=== PATIENT | male | born 1945 | race Caucasian/White ===

== ENCOUNTER 2017-03-10 16:51 | Outpatient (CLI) | payer MEDICARE, BC ==
[~2017-03-10] VITALS: Ht 177.8 cm; Wt 76.7 kg
--- NOTE | ~2017-03-10 | EC ---
PATIENT:ISIDRO LIGHT DATE OF SERVICE: 03/10/17 SEX: M MEDICAL RECORD: [id number] DATE OF : 45 LOCATION:D.OPS AGE OF PATIENT: 71 ADMISSION DATE: 03/10/17 REFERRING PHYSICIAN: INTERPRETING PHYSICIAN: BRENT CASEY MD ECHOCARDIOGRAM REPORT ECHO CHARGES 4 ECHO COMPLETE CLINICAL DIAGNOSIS: UNSTABLE ANGINA ECHOCARDIOGRAPHIC MEASUREMENTS (adult normal given) AC root (d.<3.7cm) 3.4 cm LV Septum d (<1.2 cm> 1.4 cm Valve Excursion 1.2 cm LV Septum (systole) 2.2 cm Left Atria (s.<4.0cm> 3.4 cm LVPW d(<1.2cm) 1.2 cm RV (d.<2.3cm) cm LVPW (sytole) 1.9 cm LV diastole(<5.6CM) 5.3 cm MV E-F(>70mm/sec) cm LV systole 2.9 cm LVOT Diameter cm MV exc.(>10mm) cm Est.ejection fraction (50-75%) % Pericardial Effusion N DOPPLER: LVIT cm/sec A 110 cm/sec E 58.0 cm/sec LA cm/sec RVSP 18.0 mmHg LVOT 104 cm/sec AOP1/2T m/s Asc. Ao 123 cm/sec RVOT 57.0 cm/sec RA cm/sec PA 81.0 cm/sec AV Gradient Peak 6.1 mmHg AV Mean 3.1 mmHg AV Area cm MV Gradient Peak 4.9 mmHg MV Mean 2.0 mmHg MV Area cm COMMENTS: Vp Of Digital Marketing: Alem VALLADARESDSOE Turpentine Farmer: Ana Casey TAPE# PACS DATE OF SERVICE: 03/11/2017 PROCEDURE: Transthoracic echocardiogram. FINDINGS: 1. Left ventricle has evidence of mild concentric left ventricular hypertrophy with diastolic dysfunction, ejection fraction 55% to 60%. 2. The left atrium is normal size, normal function. 3. The aortic valve, although sclerotic has no evidence of stenosis. 4. The mitral valve overall is normal with no significant mitral regurgitation. ECHOCARDIOGRAM REPORT [id number] ISIDRO LIGHT 5. The tricuspid valve overall is normal. Trace tricuspid regurgitation. RVSP that appears to be normal. 6. Pulmonic valve was not well visualized, but normal by Doppler evaluation. 7. The right atrium normal size, normal function. 8. The right ventricle is normal. CONCLUSIONS: The patient has evidence of mild left ventricular hypertrophy and hypertensive heart disease, but otherwise normal echocardiogram. TRANSINT:[id number] Voice Confirmation ID: [id number] DOCUMENT ID: [id number] BRENT CASEY MD at 1353 CC: [id number] DICTATION DATE: 03/12/17 1026 COPYWRITER: 03/12/17 1127 DEP CLI 03/11/17 [id number] [place] [address]
--- NOTE | ~2017-03-10 | HEMODYNAMI ---
PATIENT:ISIDRO LIGHT MEDICAL RECORD: [id number] : 45 [facility] [id number] ADMISSION DATE: 03/10/17 Generatedon:03/11/20179:21 Patient name: ISIDRO LIGHT Patient #: [id number] SSN: D OB: 1945 Date of study: 03/11/2017 Page: Of Hemodynamic Procedure Report Patient Data Patient Demographics Procedure consent was obtained First Name: ISIDRO Gender: Male Last Name: NADEGE : 1945 Middle Initial: C Age: 71 year(s) Patient #: [id number] Race: Additional ID: [id number] Contact details Address: [address] [place] [address] State: [place] City: [place] Zip code: [address] Past Medical History Allergies Allergen Reaction Date Comments Reported Iodine Other 03/02/2014 Hives; Facial, Tongue and Throat swelling Admission Admission Data Admission Date: 03/10/2017 Admission Time: 18:37 Room #: D.2122 Height (in.): 70 BSA: 1.94 (m2) Height (cm.): 177.8 BMI: 24.25 (kg/m2) Weight (lbs.): 169 Weight (kg.): 76.66 Lab Results Lab Result Date: 03/11/2017 Lab Result Time: 0:00 Biochemistry Name Units Result Min Max BUN mg/dl 8 --(*---)-- 7 18 Creatinine mg/dl 0.8 --(-*--)-- 0.6 1.3 CBC Name Units Result Min Max Hemoglobin g/dl 13.7 --(*---)-- 13.5 17.5 Procedure Procedure Types Cath Procedure Diagnostic Procedure [facility] w/Coronaries PCI Procedure Coronary Stent Coronary Stent Initial Miscellaneous Procedures Moderate Sedation up to 30 minutes Procedure Description Procedure Date Procedure Date: 03/11/2017 Procedure Start Time: 8:45 Procedure End Time: 9:20 Procedure Staff Name Function Wood Calderón MD Performing Physician Amina Hickey RT Monitor Mckenzie Vergara RT Scrub Sean Drake RN Nurse Gaston Bettencourt RT Denitrator Procedure Data Cath Procedure Fluoroscopy Diagnostic fluoroscopy Total fluoroscopy Time: 4.2 time: 4.2 min min Diagnostic fluoroscopy Total fluoroscopy dose: 857 dose: 857 mGy mGy Contrast Material Contrast Material Type Amount (ml) Isovue 300 64 Entry Location Entry Primary Successful Side Size Upsize Upsize Entry Closure Succes sful Closure Location (Fr) 1 (Fr) 2 (Fr) Remarks Device Remarks Femoral Right 5 Fr 6 Fr Exoseal artery Short Estimated blood loss: 10 ml Diagnostic catheters Device Type Used For End Catheter Placement MULTIPACK JL 4.0 5Fr Procedure catheter MULTIPACK 3DRC 5Fr Procedure catheter MULTIPACK Pigtail 5 Fr Procedure catheter Procedure Complications No complications Procedure Medications Medication Administration Route Dosage 0.9% NaCl I.V. 100 ml/hr Oxygen NC 2 l/min Lidocaine 2% added to field 20 Heparin Flush Bag added to field 2 bags (1000units/500ml NS) Radial Cocktail added to field 1 syringe (Verapomil 2mg/Nitro 400mcg/Heparin 1500units) Effient P.O. 60 mg Versed I.V. 2 mg Fentanyl I.V. 25 mcg Heparin Bolus I.V. 5000 units Hemodynamics Rest BSA: 1.94 (m2) HGB: 13.7 (g/dl) O2 Consumption: Estimated: 219.46 (ml/min) O2 Co nsumption indexed: Estimated:113.12 (ml/min/m) Heart Rate: 63 (bpm) Pressure Samples Time Site Value (mmHg) Purpose Heart Use Rate(bpm) 8:54 AO 141/78(105) Snapshot 66 9:01 LV 149/-10,8 Snapshot 68 9:01 LV 148/-11,8 EDP 67 9:02 AO 148/81(109) Pullback 69 9:02 LV 123/6,9 Pullback 69 Gradients Valve Time Site 1 Site 2 Mean SEP/DFP Peak To Heart Use (mmHg) (sec/min) Peak Rate (mmHg) (bpm) Aortic 9:02 LV AO 0 69 123/6,9 148/81(109) Calculations Valve P-P Mean Valve Index Valve Source Name Gradient Area Flow (cm2) Aortic 0 0 Snapshots Pre Cath Intra NCS Post Cath Vital Signs Time Heart Resp SPO2 etCO2 NIBP (mmHg) Rhythm Pain Sedation Rate (ipm) (%) (mmHg) Status Level (bpm) 8:37:06 69 18 98 0 165/95(120) NSR 0 (11) 10(A) , No pain 8:42:28 70 20 98 18.1 151/85(126) NSR 0 (11) 10(A) , No pain 8:47:08 66 19 97 10.5 131/85(108) NSR 0 (11) 9(A) , No pain 8:51:47 66 20 98 18.1 133/83(104) NSR 0 (11) 9(A) , No pain 8:56:27 64 20 98 18.8 137/79(108) NSR 0 (11) 9(A) , No pain 9:01:08 65 14 96 20.3 142/77(125) NSR 0 (11) 9(A) , No pain 9:05:44 73 15 97 24.1 127/67(102) NSR 0 (11) 10(A) , No pain 9:10:23 69 18 97 24.9 133/80(108) NSR 0 (11) 10(A) , No pain 9:15:01 72 16 97 17.3 139/77(107) NSR 0 (11) 10(A) , No pain 9:19:42 69 6 98 24.9 142/82(108) NSR 0 (11) 10(A) , No pain Medications Time Medication Route Dose Verified Delivered Reason Note s Effectiveness by by 8:39:16 0.9% NaCl I.V. 100ml/hr Wood Buffie used for Carmela ulrich MD 8:39:27 Oxygen NC 2 l/min Wood Buffie Per physician Carmela Drake RN, MD 8:39:35 Lidocaine 2% added 20ml Wood Wood for local to vial Carmela Calderón MD anesthetic field HAWKINS 8:39:41 Heparin Flush added 2 bags Wood Wood used for Bag to Carmela Calderón MD procedure (1000units/500ml field HAWKINS NS) 8:39:54 Radial Cocktail added 1 Wood Wood for wast ed, (Verapomil to syringe Carmela Calderón MD vasodilation femoral 2mg/Nitro field HAWKINS access 400mcg/Heparin obtained 1500units) 8:40:07 Effient P.O. 60 mg Wood Buffie for Carmela Drake RN antiplatelet therapy 8:41:44 Versed I.V. 2 mg Wood Buffie for sedation Carmela Drake RN, MD 8:41:54 Fentanyl I.V. 25 mcg Wood Buffie for sedation Carmela Drake RN, MD 9:02:15 Heparin Bolus I.V. 5000 Wood Buffie for veri fied units Carmela Drake RN anticoagulation by MD martinez Procedure Log Time Note 8:14:38 Gaston Bettencourt RT(R) sent for patient. Start room use. 8:14:39 Time tracking: Regular hours 8:14:43 Plan of Care:Hemodynamics will remain stable., Cardiac rhythm will remain stable., Comfort level will be maintained., Respiratory function will remain adequate., Patient/ family verbilizes understanding of procedure., Procedure tolerated without complication., Recovers from procedure without complications.. 8:16:42 Lab Result : BUN 8 mg/dl 8:16:42 Lab Result : Hemoglobin 13.7 g/dl 8:16:42 Lab Result : Creatinine 0.8 mg/dl 8:16:47 Lab results completed and on chart. 8:29:28 Patient received from Pre/Post Procedure Room to CCL 1 Alert and oriented. Tansferred to table in Supine position. 8:29:29 Warm blankets applied, and iban hugger turned on for patient comfort. 8:29:30 Correct patient and procedure confirmed by team. 8:29:31 Signed procedure consent form obtained from patient. 8:29:33 ECG and BP/O2 sat monitors applied to patient. 8:36:09 Vital chart was started 8:36:10 Baseline sample Acquired. 8:36:25 Rhythm: sinus rhythm 8:36:28 Full Disclosure recording started 8:36:31 H&P Date Dictated: 03/11/2017 Within 30 days and on chart.. 8:36:31 Pre-procedure instructions explained to patient. 8:36:32 Pre-op teaching completed and patient verbalized understanding. 8:36:34 Family in patients room. 8:36:35 Patient NPO since Midnight. 8:36:38 Is the patient allergic to Iodine/contrast media? Yes. 8:36:39 Was the patient premedicated? Yes 8:36:41 Is patient on blood thinner?Yes 8:36:43 ACC The patient was administered the following blood thiners within the last 24 hours: ACCEffient 8:36:45 Patient diabetic? Yes. 8:36:46 If diabetic: On Metformin? Yes 8:36:50 If on Metformin: Last Dose? 03/10/2017 8:36:52 Previous problem with sedation/anesthesia? No ? 8:36:53 Snore? Yes 8:36:55 Sleep apnea? No 8:36:57 Deviated septum? No 8:36:58 Opens mouth fully? Yes 8:36:59 Sticks out tongue? Yes 8:37:03 Airway obstruction? No ? 8:37:06 Dentures? Yes OUT 8:37:10 Pre procedure: right dorsailis pedis pulse 1+ Palpable, but thready & weak; easily obliterated 8:37:12 Modified Gregorio's test Ulnar < 7 seconds 8:37:13 Patient pain scale 0/10 ?. 8:37:27 IV patent on arrival in left forearm with 0.9% NaCl at [facility]. 8:37:37 Right Radial & Right Groin area was prepped with chlora-prep and draped in sterile fashion 8:37:38 Alarms reviewed by R. N. 8:37:39 Sharps counted by scrub and verified by R.N. 8:37:46 Use device set Radial Dx or PCI 8:37:53 Tegaderm 4 x 4 (1626W) opened to sterile field. 8:37:54 ACIST Manifold (11089) opened to sterile field. 8:37:55 ACIST Hand Control (80594) opened to sterile field. 8:37:56 ACIST Syringe (46456) opened to sterile field. 8:37:57 Medline Cath Pack ([id number]) opened to sterile field. 8:37:57 Bag Decanter () opened to sterile field. 8:37:59 DIAGNOSTIC WIRE .035 260cm J wire (636378) opened to sterile field. 8:37:59 MBrace Wrist Support ([id number]) opened to sterile field. 8:38:09 --------ALL STOP TIME OUT------ 8:38:09 Final Timeout: patient, procedure, and site verified with staff and physician. All members of the team are in agreement. 8:38:12 Right Radial & Right Groin site verified by team. 8:38:15 Physical assessment completed. ASA score P 2 - A patient with mild systemic disease as per Wood Calderón MD. 8:38:19 Sedation plan: IV Moderate Sedation Medication:Versed, Fentanyl 8:39:16 0.9% NaCl 100ml/hr I.V. was administered by Sean Drake RN; used for procedure; 8:39:27 Oxygen 2 l/min NC was administered by Sean Drake RN; Per physician; 8:39:35 Lidocaine 2% 20ml vial added to field was administered by Wood Calderón MD; for local anesthetic; 8:39:41 Heparin Flush Bag (1000units/500ml NS) 2 bags added to field was administered by Wood Calderón MD; used for procedure; 8:39:54 Radial Cocktail (Verapomil 2mg/Nitro 400mcg/Heparin 1500units) 1 syringe added to field was administered by Wood Calderón MD; for vasodilation; wasted, femoral access obtained 8:40:07 Effient 60 mg P.O. was administered by Sean Drake RN; for antiplatelet therapy; 8:41:36 Patient Weight : 169 lbs 8:41:39 Patient Height : 70 inches 8:41:44 Versed 2 mg I.V. was administered by Sean Drake RN; for sedation; 8:41:54 Fentanyl 25 mcg I.V. was administered by Sean Drake RN; for sedation; 8:45:44 Zero performed for pressure channel P1 8:45:51 Procedure started. 8:45:55 Local anesthetic to right radial artery with Lidocaine 2% by Wood Calderón MD.INITIAL ACCESS ONLY 8:49:37 Unable to advance radial wire. Moving to Femoral approach. 8:49:44 Local anesthetic to right femoral artery with Lidocaine 2% by Wood Calderón MD.ADDITIONAL ACCESS 8:50:29 Use device set Multipack Set 8:50:34 DIAGNOSTIC Multipack 5Fr catheter set (BN1068) opened to sterile field. 8:50:51 MICROPUNCTURE 4FR Cook (T18933) opened to sterile field. 8:50:51 SHEATH 5FR [place] (CQQ220) opened to sterile field. 8:51:59 Access obtained with 4Fr micropunture. 8:52:08 A 5 Fr sheath was inserted into the Right Femoral artery 8:53:06 A MULTIPACK JL 4.0 5Fr catheter was advanced over the wire and used for Procedure. 8:54:34 LCA angiography performed. 8:56:09 Catheter exchanged over wire. 8:56:14 A MULTIPACK 3DRC 5Fr catheter was advanced over the wire and used for Procedure. 8:57:46 RCA angiography performed. 9:01:47 Catheter exchanged over wire. 9:01:51 A MULTIPACK Pigtail 5 Fr catheter was advanced over the wire and used for Procedure. 9:02:15 Heparin Bolus 5000 units I.V. was administered by Sean Drake RN; for anticoagulation; verified by 9:02:21 LV angiography performed. 9:02:37 LV gram done using GENAO 9:02:50 EF : 65 % 9:02:52 LV hemodynamics recorded. 9:02:55 Injector settings: Ml/sec: 12, Volume: 8, 9:02:57 Catheter exchanged over wire. 9:03:04 Use device set CARMELA PCI 9:03:13 INFLATOR Merit BasixCompak (VD5417) opened to sterile field. 9:03:14 COPILOT Valve Control (5590753) opened to sterile field. 9:03:16 SHEATH 6FR [place] (VTJ308) opened to sterile field. 9:03:21 BMW 190cm [place] 2 J wire ([id number]) opened to sterile field. 9:04:43 Sheath upsized to a 6 Fr Short. 9:05:14 GUIDE 6FR ART 4.0 catheter ([id number]) opened to sterile field. 9:05:40 6 Fr ART 4 guide catheter was inserted over the wire 9:05:57 Study PCI Site: [place] pRCA has 70% stenosis. 9:06:03 ACC Pre-intervention LILY Flow is 3. 9:07:40 BMW wire advanced. 9:08:14 Wire advanced across lesion. 9:11:17 Inflation Number: 1 A JEWELL RX 3.5 x 22 stent ([id number]) was prepped and advanced across the Prox RCA. The stent was deployed at 14 SAAD for 0:10 (min:sec). 9:11:49 Stent catheter was removed intact over wire. 9:13:21 ACC Post-intervention LILY Flow is 3. 9:13:30 Wire removed. 9:13:31 Guide catheter removed. 9:13:40 EXOSEAL 6Fr (EX600) opened to sterile field. 9:14:03 Sheath removed intact; hemostasis achieved with Exoseal to the Right Femoral artery. 9:14:13 Procedure ended.(Physican Out) 9:15:38 Fluoroscopy time 04.20 minutes. 9:15:42 Fluoroscopy dose: 857 mGy 9:15:42 Flurop Dose total: 857 9:15:46 Contrast amount:Isovue 300 64ml. 9:15:48 Sharps counted by scrub and verified by R.N. 9:15:50 Insertion/operative site no bleeding no hematoma. 9:15:53 Post-op/insertion site Right Femoral artery dressed using a 4 x 4 and Tegaderm. 9:15:58 Post-op/insertion site Right Radial artery dressed using a Bandaid. 9:16:00 Post Procedure Pulses reassessed and unchanged 9:16:03 Post-procedure physical assessment completed. ASA score P 2 - A patient with mild systemic disease as per Wood Calderón MD. 9:16:05 Post procedure rhythm: unchanged. 9:16:10 Estimated blood loss: 10 ml 9:16:12 Post procedure instruction explained to patient.Patient verbalizes understanding. 9:16:12 Patient needs reinforcement of post procedure teaching. 9:16:22 Procedure type changed to Cath procedure, Diagnostic procedure, LHC, LHC w/Coronaries, PCI procedure, Coronary Stent, Coronary Stent Initial, Miscellaneous Procedures, Moderate Sedation up to 30 minutes 9:16:51 Procedure Complication : No complications 9:16:54 Procedure and supply charges have been captured, reviewed, submitted and are correct. 9:20:17 Vital chart was stopped 9:20:18 See physician's report for complete and final results. 9:20:21 Report given to PCU. 9:20:24 Patient transfered to PCU with Bed. 9:20:27 Procedure ended. 9:20:27 Full Disclosure recording stopped 9:20:44 End room use (Document Last) Intervention Summary Intervention Notes Time ActionType Lesion and Equipment Used Action# Pressure Duration Attributes 9:11:[address] stent Prox RCA JEWELL RX 3.5 x 1 14 00:10 22 stent ([id number]) Device Usage Item Name Manufacture Quantity Catalog Number Hospital Part Current M inimal Lot# / Charge Number Stock Stock Serial# Code Tegaderm 4 x 4 3M 1 1626W [id number] [id number] [id number] 5 (1626W) ACIST Manifold Acist 1 83217 079074 636334 951393 5 (80074) Medical Systems Inc ACIST Hand Acist 1 70298 350623 806001 174501 5 Control Medical (27027) Systems Inc ACIST Syringe Acist 1 26779 313316 051356 308671 2 0 (91826) Medical Systems Inc Medline Cath Cardinal 1 [id number] 771335 91552 681480 5 Pack [employer] ([id number]) Bag Decanter Microtek 1 2001S 380464 23199 442371 5 (2001S) Medical Inc. DIAGNOSTIC St Mitch 1 929372 917396 564515 984418 3 0 WIRE .035 260cm J wire (889002) MBrace Wrist Advanced 1 140-0250-00 607524 52643 495195 5 Support Vascular (778177821) Dynamics DIAGNOSTIC Cardinal 1 LF6766 371998 44505 007909 3 0 Multipack 5Fr Health catheter set (BT9688) MICROPUNCTURE Cook Medical 1 B14749 711328 435143 806845 5 4FR Cook (A18181) SHEATH 5FR Terumo 1 NEI941 142363 965051 443191 4 0 [place] (FSK443) MULTIPACK JL Cardinal 1 787202 5 4.0 5Fr Health catheter MULTIPACK 3DRC Cardinal 1 501016 5 5Fr catheter Health MULTIPACK Cardinal 1 434973 5 Pigtail 5 Fr Health catheter INFLATOR Merit Merit 1 FA5143 381151 441647 920059 1 5 Goodfilms (YY2894) COPILOT Valve Davison 1 4882854 391585 362082 101867 5 Control Vascular (5931355) SHEATH 6FR Terumo 1 LZA576 791492 487863 042865 4 0 [place] (IFZ885) BMW 190cm Davison 1 [id number] 195134 17574 937763 5 [place] 2 J Vascular wire (8731489E) GUIDE 6FR ART [place] 1 [id number] 962170 264713 399197 0 4.0 catheter Scientific (863324724) JEWELL RX 3.5 x Medtronic 1 [id number] 102558 8522535 428193 5 [id number] 22 stent ([id number]) EXOSEAL 6Fr Cardinal 1 EX600 561477 342613 050387 1 0 (EX600) Health Signature Audit [place] Stage Time Signature Unsigned Intra-Procedure 03/11/2017 Gaston Bettencourt 9:20:56 AM RT(R) Signatures Monitor : Amina Hickey Signature : RT Date : Time : [address] [address]
[~2017-03-10 16:51] MED LIST: BAYER CHEWABLE81 MG PO; DEXILANT60 MG PO; EFFIENT10 MG PO; EPIPEN0.3 MG/0.3 IM; FLUTICASONE PRO16 GM NS; FOLATE0.4 MG PO; GLUCOPHAGE1000 MG PO; GLUCOTROL XL 1010 MG PO; MIRALAX17 GM PO; NASONEX NASAL S17 GM NS; OMEGA-3100 MG PO; PLAVIX75 MG PO; PREVALITE POWD231 GM PO; PRINIVIL20 MG PO; PROTONIX40 MG PO; ZOCOR40 MG PO; ZYRTEC10 M1 PO; ZYRTEC10 MG PO
[2017-03-10 17:45] LABS: BASOPHILS 0.2 % (0-2); HEMATOCRIT 38.5 % (42.0-54.0); HEMOGLOBIN 13.3 g/dL (13.5-17.5); IMMATURE GRANULOCYTES 0.2 % (0-5); LYMPHOCYTES 40.2 % (15-50); MCHC 34.5 g/dL (31.0-37.0); MCV 92.5 fL (80.0-100.0); MEAN PLATELET VOLUME 9.7 fL (7.4-10.4); MONOCYTES 7.5 % (2-11); NEUTROPHILS 49.9 % (40-80); PLATELET COUNT 167 10x3/uL (130-400); RBC 4.16 10x6/uL (4.20-6.10); RDW 12.5 % (11.5-14.5); WBC 4.4 10x3/uL (4.8-10.8)
[2017-03-10 17:59] LABS: ALBUMIN 3.8 g/dL (3.4-5.0); ALKALINE PHOSPHATASE 94 U/L (46-116); ALT (SGPT) 28 U/L (10-68); BILIRUBIN - TOTAL 0.28 mg/dL (0.2-1.3); CALC OSMOLALITY 280 mosm/kg (275-300); CALCIUM 8.8 mg/dL (8.5-10.1); CHLORIDE - SERUM 104 mmol/L (98-107); CREATININE - SERUM 0.9 mg/dL (0.6-1.3); POTASSIUM - SERUM 3.8 mmol/L (3.5-5.1); PROTEIN - SERUM 6.7 g/dL (6.4-8.2); SODIUM 141 mmol/L (136-145); UREA NITROGEN 6 mg/dL (7-18); eGFR NON AFRICAN AMERICAN 88 mL/min (90-120)
[2017-03-10 18:00] LABS: GLUCOSE 142 mg/dL (74-106)
[2017-03-10 18:09] LABS: CHOL - HDL RATIO 2.7 ratio (2.3-4.9); CHOLESTEROL, TOTAL 121 mg/dL (0-200); CKMB 0.9 U/L (0.0-3.6); CREATINE KINASE 83 UL (21-232); HDL CHOLESTEROL 45 mg/dL (32-96); LDL CHOLESTEROL 12 mg/dL (0-100); LDL-HDL RATIO 0.3 ratio (1.5-3.5); TRIGLYCERIDE 322 mg/dL (30-200); TROPONIN-I < 0.017 ng/mL (0.000-0.060)
[2017-03-10] MEDS ORDERED: IBUPROFEN400 MG PO (21:13)
[2017-03-10 23:09] LABS: BASOPHILS 0.2 % (0-2); EOSINOPHILS 2.8 % (0-7); HEMATOCRIT 39.9 % (42.0-54.0); HEMOGLOBIN 13.7 g/dL (13.5-17.5); IMMATURE GRANULOCYTES 0.2 % (0-5); LYMPHOCYTES 42.3 % (15-50); MCH 31.8 pg (26.0-34.0); MCHC 34.3 g/dL (31.0-37.0); MCV 92.6 fL (80.0-100.0); MEAN PLATELET VOLUME 9.4 fL (7.4-10.4); MONOCYTES 7.1 % (2-11); NEUTROPHILS 47.4 % (40-80); PLATELET COUNT 157 10x3/uL (130-400); RBC 4.31 10x6/uL (4.20-6.10); RDW 12.4 % (11.5-14.5); WBC 4.9 10x3/uL (4.8-10.8)
[2017-03-10 23:29] LABS: CALCIUM 9.1 mg/dL (8.5-10.1); CARBON DIOXIDE 31.7 mmol/L (21.0-32.0); CHLORIDE - SERUM 103 mmol/L (98-107); CKMB 0.9 U/L (0.0-3.6); CREATINE KINASE 87 UL (21-232); CREATININE - SERUM 0.8 mg/dL (0.6-1.3); GLUCOSE 138 mg/dL (74-106); SODIUM 142 mmol/L (136-145); eGFR NON AFRICAN AMERICAN > 90 mL/min (90-120)
[2017-03-10 23:30] LABS: CALC OSMOLALITY 282 mosm/kg (275-300); TROPONIN-I < 0.017 ng/mL (0.000-0.060); UREA NITROGEN 8 mg/dL (7-18)
[2017-03-11 00:30] VITALS: BP 156/77
[2017-03-11 00:47] VITALS: BP 156/77; BMI 24.2
[2017-03-11 07:48] LABS: CKMB 1.2 U/L (0.0-3.6); CREATINE KINASE 88 UL (21-232)
[2017-03-11 07:49] LABS: TROPONIN-I < 0.017 ng/mL (0.000-0.060)
[2017-03-11 08:07] VITALS: BP 138/62
[2017-03-11 11:22] VITALS: BP 134/82
[2017-03-11 11:42] VITALS: Ht 177.8 cm; Wt 76.7 kg
[2017-03-11 12:20] LABS: CKMB 0.8 U/L (0.0-3.6); CREATINE KINASE 62 UL (21-232)
[2017-03-11 12:27] LABS: TROPONIN-I < 0.017 ng/mL (0.000-0.060)
[2017-03-11] MEDS ORDERED: PLAVIX75 MG PO (14:12)
[2017-03-11] MEDS ORDERED: EFFIENT10 MG PO (14:38)
[2017-03-11 15:25] VITALS: BP 122/86
== END 2017-03-11 16:52 | disposition home or self-care (01) ==
LOC: OBSVTIME → D.ER 16:51 → D.OPS 16:51 → D.M2 18:37 → D.ER 18:37 → OBSVTIME 18:37 → D.M2 20:57 → D.OPS 03-11 16:52 → D.M2 03-11 16:52
PROVIDERS: Emergency Medicine; Internal Medicine Cardiovascular Disease
DX: I25.110 Atherosclerotic heart disease of native coronary artery with unstable angina pectoris (principal); E11.9 Type 2 diabetes mellitus without complications; R07.9 Chest pain, unspecified; Z01.812 Encounter for preprocedural laboratory examination
CPT/HCPCS: 93458; C9600

== ENCOUNTER → 2018-09-26 11:15 | Outpatient (CLI) | payer MEDICARE, BC ==
[2017-03-11 11:42] VITALS: BMI 24.2
[~2018-09-26 11:15] MED LIST changes: +IBUPROFEN400 MG PO
--- NOTE | 2018-09-28 16:51 | ST ---
PATIENT:ISIDRO LIGHT MEDICAL RECORD: [id number] SEX: M LOCATION:[facility] ORDER #: ADMISSION DATE: 09/26/18 AGE OF PATIENT: 72 REFERRING PHYSICIAN: INTERPRETING PHYSICIAN: CLAYTON PHILIPPE MD DATE OF SERVICE: 09/26/2018 PROCEDURE: Nuclear Stress Test. INDICATION: Angina and coronary artery disease, shortness of breath, hypertension, and hyperlipidemia. PROCEDURE IN DETAIL: He was exercised on standard Lexiscan protocol with 28 mCi of sestamibi injected at peak stress, 9 mCi used previously for rest images. FINDINGS: Gated SPECT reveals preserved ejection fraction at 68% with decreased thickening and brightening throughout the inferior segments. SPECT imaging: Cardiolite was used as myocardial perfusion agent. There is a fixed perfusion defect inferiorly from a previous inferior myocardial infarction. There is no evidence of reversible ischemia. The remaining segments with homogeneous uptake at rest and stress. OVERALL IMPRESSION: This is a stable and mildly abnormal nuclear stress test only showing a fixed perfusion defect inferiorly. No ongoing ischemic burden and preserved ejection fraction at 68%. Continue medical management of the coronary artery disease and cardiac risk factors. TRANSINT:[id number] Voice Confirmation ID: [id number] DOCUMENT ID: [id number] CLAYTON PHILIPPE MD at 1651 CC: MENDOZA HORTA [id number] DICTATION DATE: 09/26/18 1647 ROLL TRUCKER: 09/27/18 0055 [facility] CLI 09/26/18 [id number] [place] [address]
== END | disposition home or self-care (01) ==
LOC: D.HCCARDIO 11:15
PROVIDERS: ATTEND Internal Medicine Interventional Cardiology
DX: I25.10 Atherosclerotic heart disease of native coronary artery without angina pectoris (principal)

== ENCOUNTER 2019-09-29 19:41 | Emergency (ER) | payer MEDICARE, BC ==
[~2019-09-29] VITALS: Ht 177.8 cm; Wt 81.8 kg
[2019-09-29 19:55] VITALS: Ht 177.8 cm; Wt 81.8 kg
[2019-09-29 20:34] LABS: BASOPHILS 0.2 % (0-2); EOSINOPHILS 1.2 % (0-7); HEMATOCRIT 37.5 % (42.0-54.0); HEMOGLOBIN 12.6 g/dL (13.5-17.5); IMMATURE GRANULOCYTES 0.2 % (0-5); LYMPHOCYTES 24.4 % (15-50); MCH 31.6 pg (26.0-34.0); MCHC 33.6 g/dL (31.0-37.0); MEAN PLATELET VOLUME 9.8 fL (7.4-10.4); MONOCYTES 6.5 % (2-11); NEUTROPHILS 67.5 % (40-80); PLATELET COUNT 160 10x3/uL (130-400); RBC 3.99 10x6/uL (4.20-6.10); RDW 13.5 % (11.5-14.5); WBC 5.2 10x3/uL (4.8-10.8)
[2019-09-29 20:43] LABS: CALC OSMOLALITY 284 mosm/kg (275-300); CALCIUM 8.5 mg/dL (8.5-10.1); CHLORIDE - SERUM 106 mmol/L (98-107); GLUCOSE 234 mg/dL (74-106); POTASSIUM - SERUM 3.6 mmol/L (3.5-5.1); SODIUM 140 mmol/L (136-145); UREA NITROGEN 6 mg/dL (7-18); eGFR NON AFRICAN AMERICAN 78 mL/min (90-120)
[2019-09-29 20:47] LABS: APTT 29.3 SECONDS (22.8-39.4); INR 0.99 (0.85-1.17)
[2019-09-29 20:49] LABS: ALBUMIN 3.8 g/dL (3.4-5.0); ALKALINE PHOSPHATASE 105 U/L (30-120); ALT (SGPT) 23 U/L (10-68); BILIRUBIN - TOTAL 0.58 mg/dL (0.2-1.3); PROTEIN - SERUM 6.8 g/dL (6.4-8.2)
[2019-09-29 21:25] VITALS: BP 137/72
== END 2019-09-29 21:25 | disposition home or self-care (01) ==
LOC: D.ER 19:41
PROVIDERS: Family Medicine
DX: R04.0 Epistaxis (principal); E11.9 Type 2 diabetes mellitus without complications; I10 Essential (primary) hypertension; Z79.84 Long term (current) use of oral hypoglycemic drugs